=== PATIENT | male | born 1995 | race Two or more races ===

== ENCOUNTER 2022-11-05 19:33 | Emergency (ER) | payer SELFPAY ==
[~2022-11-05] VITALS: Ht 175.3 cm; Wt 80.0 kg
[2022-11-05 19:33] VITALS: BP 126/63
== END 2022-11-06 01:46 | disposition left against medical advice (07) ==
LOC: ER 19:38
DX: M54.59 Other low back pain (principal); Z53.21 Procedure and treatment not carried out due to patient leaving prior to being seen by health care provider

== ENCOUNTER 2022-12-28 16:21 | Emergency (ER) | payer SELFPAY ==
[~2022-12-28] VITALS: Ht 175.3 cm; Wt 76.3 kg
[2022-12-28 16:53] LABS: Basophils # (auto) 0 10 ^3/uL (0-0.2); Basophils % (auto) 0.5 % (0.0-2.0); Eosinophils # (auto) 0.1 10 ^3/uL (0-0.8); Hematocrit 44.9 % (41.0-53.0); Hemoglobin 15.3 g/dL (13.5-17.5); Lymphocytes # (auto) 2.9 10 ^3/uL (0.4-5.4); Lymphocytes % (auto) 34.5 % (10.0-50.0); Mean Corpuscular Hemoglobin 31.7 pg (28.0-32.0); Mean Corpuscular Volume 93.2 fL (80.0-100.0); Monocytes # (auto) 0.9 10 ^3/uL (0-1.3); Monocytes % (auto) 10.4 % (0.0-12.0); Neutrophils # (auto) 4.4 10 ^3/uL (1.6-8.6); Neutrophils % (auto) 53.6 % (37.0-80.0); Nucleated Red Blood Cells % 0.1 %; Red Blood Cells 4.82 10^6/uL (4.5-5.90); White Blood Cell 8.3 10^3/uL (4.4-10.8)
[2022-12-28 17:09] LABS: Albumin 3.9 g/dL (3.4-5.0); BUN/Creatinine Ratio 15.2 (10.0-20.0); Calcium 8.6 mg/dL (8.5-10.1); Potassium 3.9 mmol/L (3.5-5.1)
[2022-12-28 17:12] LABS: Bilirubin, Total 1.4 mg/dL (0.2-1.0); Total Protein 7.3 g/dL (6.4-8.2)
[2022-12-28 19:03] VITALS: BP 105/70; PULSE 55; RESP 18; TEMP 98; O2SAT 99
== END 2022-12-28 19:05 | disposition home or self-care (01) ==
LOC: ER 16:21
DX: S16.1XXA Strain of muscle, fascia and tendon at neck level, initial encounter (principal); S09.8XXA Other specified injuries of head, initial encounter; J34.89 Other specified disorders of nose and nasal sinuses; R11.0 Nausea; R42 Dizziness and giddiness; R53.83 Other fatigue; F17.210 Nicotine dependence, cigarettes, uncomplicated; F15.90 Other stimulant use, unspecified, uncomplicated; W11.XXXA Fall on and from ladder, initial encounter; Y93.89 Activity, other specified; Y92.89 Other specified places as the place of occurrence of the external cause; Y99.8 Other external cause status
CPT/HCPCS: 36415; 70450; 70486; 70490; 80053; 85025